=== PATIENT | female | born 1955 | race Caucasian/White ===

== ENCOUNTER → 2016-11-26 | Outpatient (CLI) | payer OTHER ==
--- NOTE | 2016-11-26 09:58 | US ---
EXAM DESCRIPTION: Gallbladder ultrasound. CLINICAL HISTORY: Abdominal pain. COMPARISON: March 12, 2015 TECHNIQUE: Transabdominal sonography was performed by an radiology ct technologist. FINDINGS: Liver: Echogenicity suggests fatty infiltration and/or chronic hepatocellular disease. No suspicious lesion or surface nodularity. Portal vein is patent with hepatopedal flow. Biliary: Several gallstones are present. There is no gallbladder wall thickening or sonographic Echols sign to suggest acute cholecystitis. There is no intrahepatic biliary duct dilation. Mid common bile duct measures 9 mm in diameter. Pancreas: No focal lesion. However, certain portions are obscured by overlying bowel gas and unable to be evaluated. IMPRESSION There is evidence of cholelithiasis and a prominent common bile duct. There is no evidence cholecystitis. The common bile duct is enlarged, but stable in diameter when compared February 2015. Echogenic liver compatible with fatty infiltration or hepatocellular disease. Electronically signed by: Latrell Nieves MD 11/26/2016 09:56
== END ==
LOC: US 08:59
PROVIDERS: ATTEND Nurse Practitioner Family
DX: R10.11 Right upper quadrant pain (principal)

== ENCOUNTER → 2017-01-11 | Outpatient (CLI) | payer OTHER | END | disposition home or self-care (01) | LOC: YCFC.O 08:00 | PROVIDERS: ATTEND Nurse Practitioner Family | DX: Z13.79 Encounter for other screening for genetic and chromosomal anomalies (principal); Z79.891 Long term (current) use of opiate analgesic ==

== ENCOUNTER → 2017-03-18 | Outpatient (CLI) | payer OTHER | END | disposition home or self-care (01) | LOC: YCFC.O 16:25 | PROVIDERS: ATTEND Nurse Practitioner Family | DX: N39.0 Urinary tract infection, site not specified (principal) ==

== ENCOUNTER → 2017-04-25 | Outpatient (CLI) | payer OTHER | END | disposition home or self-care (01) | LOC: YCFC.O 11:19 | PROVIDERS: ATTEND Anesthesiology Pain Medicine | DX: Z79.891 Long term (current) use of opiate analgesic (principal) ==

== ENCOUNTER 2017-05-02 08:00 | Day surgery (SDC) | payer OTHER ==
--- NOTE | 2017-04-28 12:02 | RAD ---
EXAM DESCRIPTION: Chest,1 View CLINICAL HISTORY: 62 years Female, Pre-op for abdominal surgery IMPRESSION: Heart size is at the upper limits of normal. No evidence of volume overload or pulmonary edema. Lungs are clear. No pleural effusion or pneumothorax. Electronically signed by: Latrell Nieves MD 04/28/2017 12:02 PM CDT
[~2017-05-02 08:00] MED LIST: BUPIVACAINE 0.25% W/EPI 50 ML VIAL INJ ONE; HEPARIN SODIUM (PORCINE) 10,000 UNITS/ML VIAL ONE; LACTATED RINGERS 1,000 ML ONE; MIDAZOLAM INJ 5 MG/5 ML VIAL ONE; ROCURONIUM BROMIDE 10 MG/ML VIAL ONE; SODIUM CHL 0.9% 100ML MINI-BAG 100 ML IVPB ONE; ceFAZolin SODIUM 1 GM VIAL ONE; fentaNYL CITRATE INJ 50 MCG/ML AMP ONE
[2017-05-02] MEDS ORDERED: ROCURONIUM BROMIDE 10 MG/ML VIAL ONE (09:37)
[2017-05-02] MEDS ORDERED: PROPOFOL 200 MG/20 ML VIAL IV ONE (12:00)
[2017-05-02] MEDS ORDERED: NEOSTIGMINE METHYLSULFATE 1 MG/ML ML IV ONE (12:00)
[2017-05-02] MEDS ORDERED: ATROPINE SULFATE 0.4 MG/ML 1ML VIAL IV ONE (12:00)
[2017-05-02] MEDS: MORPHINE SULFATE INJ 10 MG/ML VIAL ONE ×2 (12:55→13:00)
[2017-05-02] MEDS ORDERED: ONDANSETRON INJ 4 MG/2 ML VIAL ONE (13:13)
--- NOTE | 2017-05-02 13:22 | OP ---
DATE OF PROCEDURE: 05/02/17 PREOPERATIVE DIAGNOSIS: 1. Symptomatic cholelithiasis. 2. Fatty infiltration of the liver. POSTOPERATIVE DIAGNOSIS: 1. Symptomatic cholelithiasis. 2. Fatty infiltration of the liver. 3. Chronic cholecystitis. PROCEDURE: 1. Laparoscopic cholecystectomy with intraoperative cholangiography. 2. Wedge biopsy of the liver. 3. Hemoclip closing of duct of Luschka in the lateral aspect of the gallbladder bed. SURGEON: Richie Wu MD. BAKER HEAD: None. ANESTHESIA: Local infiltration of 0.25% Marcaine with epinephrine and general endotracheal anesthesia. INDICATION: The patient is a 62-year-old female with multiple medical problems including coronary artery disease status post myocardial infarction, diabetes mellitus, chronic constipation who has had episodes of right upper quadrant pain which were colicky in nature, quit severe, associated with nausea and radiation to the back and seemed to be associated with fatty meals. Her workup revealed what appeared to be small stones with no thickened wall or pericholecystic fluid and a normal duct. Also, there was apparent fatty infiltration of the liver or some other problem with the hepatic parenchyma. The patient was brought to the Surgical Suite today for cholecystectomy and liver biopsy after the risks, benefits and alternatives to the procedure were discussed and accepted. FINDINGS: Intraocular cholangiograms were compromised by the nonfunctioning of the C-arm, so they were taken with regular films. Due to the patient's size , they were quite difficult to read, however, we can definitely see the cystic cyst empty into the common hepatic duct even though it was quite light and hard to get fluid into the proximal biliary tree, but we were able to identify some of the branches. There was no leak, no filling defect or stricture identified. Also, after the gallbladder was removed, there was a small bile leak in the very lateral aspect of the posterior aspect of the gallbladder bed of the liver. The tiny os was identified and clipped with one clip and it was consistent with a duct of Luschka. No other significant pathology was identified other than that the gallbladder was covered with adhesions from the omentum and the duodenum. There were also adhesions from the omentum to the anterior abdominal wall laterally and below the gallbladder which required being taken down. DESCRIPTION OF PROCEDURE: After adequate general endotracheal anesthesia was obtained, the patient was prepped and draped in the usual sterile manner. Surgical time-out was taken. A vertical incision was made above the umbilicus, first with infiltration of anesthesia and then with a sharp knife. Dissection was carried down through the skin and subcutaneous tissue to the midline fascia. Traction sutures were placed on either side of the midline. A small incision was made in the fascia and the peritoneum was opened bluntly. Rolando trocar was introduced under direct vision into the abdominal cavity and fixed in place with the 20 mL balloon. CO2 was then insufflated until a pressure of 12 mmHg was reached and the abdomen was tympanitic in all four quadrants. When this was done, the laparoscope was introduced. The abdomen was inspected with the previously noted findings. The patient was then placed in reverse Trendelenburg position, turned to the left side. The midline upper abdominal port was placed under direct vision. The adhesions to the anterior abdominal were taken down using electrocautery and sharp dissection. When this was done, the other ports were placed. The gallbladder was elevated and the adhesions to the gallbladder were taken down again using sharp dissection and electrocautery and some blunt dissection. When the gallbladder was identified, the neck of the gallbladder was retracted anteriorly and laterally. The triangle of Calot was then explored with the cystic duct and cystic artery identified and isolated. The cystic duct was hemoclipped once proximally. The cystic artery was hemoclipped twice proximally and once distally. A small incision was made in the cystic duct. The cholangiogram catheter was introduced through a separate stab wound in the right upper quadrant, introduced into the cystic duct and clipped in place. Cholangiograms were then taken using fluoroscopy with the previously noted difficulties of poor visualization of the upper black. Free flow into the duodenum with no filling defects or strictures. When this was done, the cystic duct catheter was removed. The cystic duct was hemoclipped three times distally and divided between the hemoclips. The cystic artery was divided. The gallbladder was then dissected free from the gallbladder bed of the liver. A second arterial vessel was identified, clipped and divided and then as I noted laterally in the lateral aspect of the gallbladder bed of the liver, there was a bile leak which the os was approximately 1 mm and this was clipped with one clip which controlled the loss at that time. The wound was irrigated copiously with saline, both the subhepatic space and the subphrenic space on the right. The irrigant was noted to be slightly blood-tinged, so at this point a 15-German round ANNALISA drain was placed in the subhepatic space in the area of the clip on the duct of Luschka and in the sarah hepatis. It was sutured in placed on the lateral port site with a single 3-0 Nylon suture. When this was done, the upper abdominal ports were removed under direct vision and adequate hemostasis was noted. At this point, the CO2, the laparoscope and the infraumbilical port were removed. The infraumbilical port site fascia was approximated with a single [id number] suture of 0 Vicryl oriented [id number]. This was tightened and tied. The wounds were all irrigated copiously with saline. The supraumbilical subcutaneous tissue was reapproximated with 0 Vicryl sutures. Skin edges were approximated with 4-0 Vicryl subcuticular sutures, benzoin and Steri-Strips. Sterile pressure dressings were applied. The ANNALISA drain was placed to closed grenade drainage. The patient was awakened and taken to the Recovery Room in good and stable condition. Estimated blood loss was less than 50 mL. All sponge, needle and instrument counts were correct. #[id number] [facility]
[2017-05-02] MEDS: METOCLOPRAMIDE HCL INJ 10 MG/2 ML VIAL ONE ×2 (13:23→13:25)
[2017-05-02 14:00] VITALS: O2SAT 95
[2017-05-02 15:29] VITALS: BP 98/61; TEMP 97.4
--- NOTE | 2017-05-03 17:36 | RAD ---
EXAM DESCRIPTION: Cholangiogram,Operative CLINICAL HISTORY: 62 years Female, IOC COMPARISON: None. FINDINGS: Two radiographic images were obtained in the operative suite and demonstrate filling of the common bile duct and duodenum without evidence of obstruction. The second image demonstrates partial intrahepatic filling of the common hepatic and intrahepatic ducts as well as the filling of the cystic duct. Nasogastric tube is noted in place. IMPRESSION: Normal operative cholangiogram using plain film imaging in the operative suite Electronically signed by: Adonay Parkinson MD 05/03/2017 5:36 PM CDT
== END 2017-05-02 15:20 | disposition home or self-care (01) ==
LOC: AMB 08:00
PROVIDERS: ATTEND Surgery
DX: K80.10 Calculus of gallbladder with chronic cholecystitis without obstruction (principal); K76.0 Fatty (change of) liver, not elsewhere classified; I25.10 Atherosclerotic heart disease of native coronary artery without angina pectoris; E11.9 Type 2 diabetes mellitus without complications; G89.29 Other chronic pain; M54.9 Dorsalgia, unspecified; F17.210 Nicotine dependence, cigarettes, uncomplicated; I25.2 Old myocardial infarction; Z88.8 Allergy status to other drugs, medicaments and biological substances; Z79.02 Long term (current) use of antithrombotics/antiplatelets; Z79.4 Long term (current) use of insulin; Z79.899 Other long term (current) drug therapy
CPT/HCPCS: 00790; 36415; 36416; 47100; 47563; 71010; 74300; 80053; 81001; 82948; 85025; 93005; J0690; J1644; J2270; J2405; J2710; J2765; J3010; J3490; J7050; J7120

== ENCOUNTER → 2017-05-04 | Outpatient (CLI) | payer OTHER | END | disposition home or self-care (01) | LOC: LAB 09:29 | PROVIDERS: ATTEND Surgery | DX: K80.10 Calculus of gallbladder with chronic cholecystitis without obstruction (principal) ==

== ENCOUNTER → 2017-08-09 | Outpatient (CLI) | payer OTHER | END | disposition home or self-care (01) | LOC: YCFC.O 14:43 | PROVIDERS: ATTEND Anesthesiology Pain Medicine | DX: Z79.891 Long term (current) use of opiate analgesic (principal) ==

== ENCOUNTER → 2017-10-11 | Outpatient (CLI) | payer OTHER ==
--- NOTE | 2017-10-13 02:18 | RAD ---
Examination: XR ANKLE 3 OR MORE VIEWS dated 10/11/2017 8:56 AM [employer] History: RIGHT ANKLE PAIN Comparison: None Technique: Three views of the right ankle FINDINGS AND IMPRESSION: There is an oblique fracture extending through the distal fibular shaft with mild widening of the lateral ankle mortise suggestive of ligamentous injury. Well-corticated fragment adjacent to the medial malleolus likely sequela of prior avulsion injury. Electronically signed by: Shayne Bustos MD 10/13/2017 2:17 AM [employer] [employer]
== END | disposition home or self-care (01) ==
LOC: RAD 08:56
PROVIDERS: ATTEND Orthopaedic Surgery
DX: M25.571 Pain in right ankle and joints of right foot (principal)

== ENCOUNTER → 2017-10-24 | Outpatient (CLI) | payer OTHER ==
--- NOTE | 2017-10-24 13:58 | RAD ---
EXAM DESCRIPTION: Right ankle, 3 views CLINICAL HISTORY: Fracture with pain and deformity FINDINGS/ IMPRESSION: Comparison 10/11/2017 Spiral oblique fracture of the distal fibula extending from posterior lateral metaphysis to the anterior inferior metaphysis at the level of the ankle joint. No osseous union or callus. Similar degree of displacement/separation between the 2 fragments, about 2-3 mm Widening of the ankle mortise medially. Faint calcific density inferior to the medial malleolus likely related to remote avulsion fracture. These were present on the previous study. No acute tibial fracture Small anterior tibiotalar marginal osteophytes Large well-corticated plantar calcaneal spur and calcaneal enthesophyte at the Achilles tendon attachment Soft tissue swelling Electronically signed by: Adonay Galvin MD 10/24/2017 1:57 PM [facility]
--- NOTE | 2017-10-24 14:24 | RAD ---
EXAM DESCRIPTION: Ankle,Left 3 Views CLINICAL HISTORY: PAIN IN LEFT ANKLE AND JOINTS OF LEFT FOOT COMPARISON: None. IMPRESSION: 3 views of the left ankle shows a spiral fracture of the distal fibula extending from the level of the ankle mortise to 3 cm proximally. There is minimal up to 2 mm separation of the medial aspect of the osseous fragments. Ankle mortise appears intact. No definite medial malleolus fracture seen. Large plantar and Achilles enthesophytes of the calcaneus are seen. Mild joint space narrowing and osteophytes of the midfoot tarsal bones are seen consistent with osteoarthritic changes. Electronically signed by: Dane Wong MD 10/24/2017 2:22 PM [facility]
== END | disposition home or self-care (01) ==
LOC: RAD 08:13
PROVIDERS: ATTEND Orthopaedic Surgery
DX: S82.821D Torus fracture of lower end of right fibula, subsequent encounter for fracture with routine healing (principal); M25.572 Pain in left ankle and joints of left foot; X58.XXXA Exposure to other specified factors, initial encounter

== ENCOUNTER → 2017-11-09 | Outpatient (CLI) | payer OTHER ==
--- NOTE | 2017-11-10 07:04 | RAD ---
EXAM DESCRIPTION: Ankle,Right 3 Views CLINICAL HISTORY: 62 years Female, CLOSED FRACTURE OF DISTAL FIBULA COMPARISON: October 24, 2017 FINDINGS: Again seen is an obliquely oriented minimally displaced distal right fibular fracture without significant callus formation identified on today's exam. No new fracture or malalignment. The tibiotalar joint space and talar dome are well-maintained. Again seen is prominent calcaneal spurring at the insertion sites of the plantar fascia and Achilles tendon. IMPRESSION: Minimally displaced distal right fibular fracture which remains largely nonunited, not significantly changed from October 24, 2017. No new abnormality. Electronically signed by: Nikos Lux MD 11/10/2017 7:03 AM [facility]
--- NOTE | 2017-11-10 07:07 | RAD ---
EXAM DESCRIPTION: Ankle,Left 3 Views CLINICAL HISTORY: 62 years Female, CLOSED FRACTURE OF DISTAL FIBULA COMPARISON: October 24, 2017 FINDINGS: 3 views of the left ankle again show a slightly displaced obliquely oriented distal left fibular fracture with minimal callus formation along the most superior aspect of the fracture plane. The fracture remains largely nonunited. No new fracture or malalignment. Again seen is prominent calcaneal spurring at the insertion sites of the plantar fascia and Achilles tendon. Mild degenerative calcifications are noted along the dorsal aspect of the midfoot. IMPRESSION: Minimally displaced, largely nonunited distal left fibular fracture, unchanged from October 24, 2017. No new abnormality. Electronically signed by: Nikos Lux MD 11/10/2017 7:06 AM [facility]
== END | disposition home or self-care (01) ==
LOC: RAD 07:56
PROVIDERS: ATTEND Orthopaedic Surgery
DX: S89.391D Other physeal fracture of lower end of right fibula, subsequent encounter for fracture with routine healing (principal)

== ENCOUNTER → 2017-11-17 | Outpatient (CLI) | payer OTHER ==
--- NOTE | 2017-11-17 09:44 | RAD ---
EXAM DESCRIPTION: Ankle,Right 3 Views CLINICAL HISTORY: 62 years, Female, CLOSED FX OF DISTAL FIBULA COMPARISON: November 09 FINDINGS: Study view through a cast slightly obscures bony detail. Fracture lower fibula with minimal lateral subluxation stable alignment.. IMPRESSION: Slight interval healing lower fibula fracture with stable alignment compared to November 09 as viewed through a cast Electronically signed by: Armani Inman MD 11/17/2017 9:43 AM [facility]
--- NOTE | 2017-11-17 10:00 | RAD ---
EXAM DESCRIPTION: Ankle,Left 3 Views CLINICAL HISTORY: 62 years, Female, ANKLE PAIN COMPARISON: None. TECHNIQUE: AP/lateral/oblique of the ankle left ankle FINDINGS: Out of cast images of the left ankle demonstrate an oblique fracture of the distal fibular shaft with minimal bridging callus formation but considerable lucency remaining. Ankle mortise is well maintained. IMPRESSION: 1. Partially healed distal fibular fracture. Electronically signed by: Adonay Parkinson MD 11/17/2017 9:59 AM [facility]
--- NOTE | 2017-11-17 10:42 | RAD ---
EXAM DESCRIPTION: XR ABDOMEN 1 VIEW (KUB) CLINICAL HISTORY: ABD DISTENTION COMPARISON: None Available. TECHNIQUE: KUB FINDINGS: There is an unremarkable bowel gas pattern. Surgical clips from right upper quadrant prior cholecystectomy is noted No obstruction or ileus is evident. No soft tissue masses or unusual calcifications are noted. Age appropriate bony degenerative changes are present. IMPRESSION: Normal examination Electronically signed by: Adonay Parkinson MD 11/17/2017 10:41 AM [employer]
== END | disposition home or self-care (01) ==
LOC: RAD 08:34
PROVIDERS: ATTEND Orthopaedic Surgery
DX: S89.391D Other physeal fracture of lower end of right fibula, subsequent encounter for fracture with routine healing (principal); M25.572 Pain in left ankle and joints of left foot; R14.0 Abdominal distension (gaseous)

== ENCOUNTER → 2017-12-01 | Outpatient (CLI) | payer OTHER ==
--- NOTE | 2017-12-02 09:28 | RAD ---
EXAM DESCRIPTION: Ankle,Right 3 Views CLINICAL HISTORY: 62 years, Female, CLOSED FRACTURE OF DISTAL FIBULA COMPARISON: November 17, 2017 TECHNIQUE: AP/lateral/oblique of the Right ankle FINDINGS: Patient is in a cast. Oblique nondisplaced nonangulated healing fracture distal fibula. Minor callus formation observed but healing is very early. Mortise joint shows normal relationship. IMPRESSION: 1. Well aligned fracture distal fibula Electronically signed by: Jayro Hutchins MD 12/02/2017 9:27 AM [facility]
--- NOTE | 2017-12-02 09:29 | RAD ---
EXAM DESCRIPTION: Ankle,Left 3 Views CLINICAL HISTORY: 62 years, Female, PAIN IN LEFT ANKLE COMPARISON: November 17, 2017 TECHNIQUE: AP/lateral/oblique of the left ankle FINDINGS: Oblique nondisplaced fracture distal fibula with early callus formation. Mortise joint shows normal relationship. IMPRESSION: 1. Early healing left fibular fracture Electronically signed by: Jayro Hutchins MD 12/02/2017 9:27 AM [facility]
== END | disposition home or self-care (01) ==
LOC: RAD 08:21
PROVIDERS: ATTEND Orthopaedic Surgery
DX: S89.391D Other physeal fracture of lower end of right fibula, subsequent encounter for fracture with routine healing (principal); M25.572 Pain in left ankle and joints of left foot

== ENCOUNTER → 2017-12-26 | Outpatient (CLI) | payer OTHER ==
--- NOTE | 2017-12-26 16:43 | RAD ---
EXAM DESCRIPTION: Ankle,Right 3 Views CLINICAL HISTORY: 62 years, Female, ANKLE PAIN COMPARISON: None. TECHNIQUE: AP/lateral/oblique of the ankle FINDINGS: Three views of the right ankle demonstrate an oblique fracture of the distal fibular shaft that tracts from superiolaterally to the level of the talar dome with very slight widening of the fracture line. Very minimal widening of the ankle mortise medially is suggested. Calcaneal spurring at the plantar arch origin and Achilles tendon insertion is noted. No abnormality of the medial or posterior malleolus noted. IMPRESSION: 1. Oblique fracture of the distal fibular shaft above the ankle mortise with suggestion of minimal widening of the mortise medially. Electronically signed by: Adonay Parkinson MD 12/26/2017 4:42 PM [facility]
--- NOTE | 2017-12-26 17:28 | RAD ---
EXAM DESCRIPTION: Ankle,Left 3 Views CLINICAL HISTORY: 62 years, Female, CLOSED FX OF DISTAL FIBULA COMPARISON: December 01, 2017 TECHNIQUE: AP/lateral/oblique of the ankle FINDINGS: Three views of the left ankle demonstrate a partially healed oblique fracture of the distal fibula above the ankle mortise, similar to that seen on the right but without evidence of early callus formation bridging the fracture site. No significant widening of the ankle mortise is noted. Definite maturation of the callus is evident without change in alignment comparison to prior study December 01. IMPRESSION: 1. Partially healed oblique fracture of the distal fibula with slight maturation of callus formation. Electronically signed by: Adonay Parkinson MD 12/26/2017 5:27 PM [facility]
== END ==
LOC: RAD 08:59
PROVIDERS: ATTEND Orthopaedic Surgery
DX: S89.391D Other physeal fracture of lower end of right fibula, subsequent encounter for fracture with routine healing (principal); S82.401A Unspecified fracture of shaft of right fibula, initial encounter for closed fracture

== ENCOUNTER → 2018-01-26 | Outpatient (CLI) | payer OTHER ==
--- NOTE | 2018-01-26 12:50 | RAD ---
EXAM DESCRIPTION: Ankle,Right 3 Views CLINICAL HISTORY: 62 years, Female, CLOSED FX OF DISTAL FIBULA COMPARISON: Previous study December 26, 2017 TECHNIQUE: AP/lateral/oblique of the right ankle FINDINGS: Intact medial and lateral malleolus. There is mild soft tissue swelling medially and laterally. Oblique fracture through the distal fibula is seen extending into the lateral aspect of the ankle joint. Compared to previous study, no change in alignment is seen. Fracture line is somewhat obscured by bridging callus. There is periosteal new bone formation medially. Irregularities at the medial malleolus suggest old trauma. Small cystic lesion in the medial talar dome suggests subchondral degenerative cyst formation. No cortical break to suggest traumatic osteochondral lesion. Lateral view shows no evidence of fracture of the body of the talus or calcaneus. Exuberant plantar and dorsal calcaneal spurring is present. Mild degenerative spurring at the anterior ankle joint. Degenerative spurring is seen at the dorsal navicular. IMPRESSION: Healing fracture of the distal right fibula. Electronically signed by: Michael Patel MD 01/26/2018 12:49 PM [facility]
--- NOTE | 2018-01-26 12:54 | RAD ---
EXAM DESCRIPTION: Ankle,Left 3 Views CLINICAL HISTORY: 62 years, Female, PAIN IN LEFT ANKLE AND JOINTS OF LEFT FOOT COMPARISON: Left ankle x-rays December 26, 2017 TECHNIQUE: AP/lateral/oblique of the left ankle FINDINGS: Oblique fracture through the distal left fibula is seen extending into the lateral ankle joint. Periosteal new bone formation and bridging callus is evident on the present exam consistent with healing fracture. No change in alignment since previous study. Minimal spurring at the medial malleolus. Talar dome appears intact. There is minimal soft tissue swelling near the malleoli. Lateral view shows degenerative spurring at the anterior ankle joint and at the naviculocuneiform joint. Lateral view shows no evidence of fracture of the body of the talus or calcaneus. Prominent dorsal and plantar calcaneal spurring is seen. IMPRESSION: Healing fracture of the distal left fibula. Electronically signed by: Michael Patel MD 01/26/2018 12:53 PM [facility]
== END ==
LOC: RAD 08:51
PROVIDERS: ATTEND Orthopaedic Surgery
DX: S89.391D Other physeal fracture of lower end of right fibula, subsequent encounter for fracture with routine healing (principal); M25.572 Pain in left ankle and joints of left foot

== ENCOUNTER → 2018-03-09 | Outpatient (CLI) | payer OTHER ==
--- NOTE | 2018-03-10 09:10 | RAD ---
EXAM DESCRIPTION: Ankle,Left 3 Views CLINICAL HISTORY: 62 years Female, PAIN IN LEFT ANKLE AND JOINTS OF LEFT FOOT COMPARISON: January 26, 2018 FINDINGS: Previous of the left ankle show a partially united, obliquely oriented and nondisplaced fracture involving the distal third of the left fibular diaphysis, not significantly changed from January 26, 2018. No acute fracture or malalignment is seen. The tibiotalar joint space and talar dome are well-maintained. Again noted is prominent calcaneal spurring at the insertion sites of the Achilles tendon and plantar fascia. IMPRESSION: Partially united distal left fibular fracture, not significantly changed from January 26, 2018. Electronically signed by: Nikos Lux MD 03/10/2018 9:09 AM CDT
--- NOTE | 2018-03-10 09:13 | RAD ---
EXAM DESCRIPTION: Ankle,Right 3 Views CLINICAL HISTORY: 62 years Female, PHYSEAL FX OF LOWER END OF RIGHT FIBULA COMPARISON: January 26, 2018 FINDINGS: Again seen is a partially united, nondisplaced fracture involving the distal third of the right fibular diaphysis, not significantly changed from January 26, 2018. No acute fracture or malalignment is seen. Calcification adjacent to the medial malleolus may be related to remote trauma or degenerative change. The tibiotalar joint space and talar dome are well-maintained. Again noted is prominent calcaneal spurring at the insertion sites of the plantar fascia and Achilles tendon. IMPRESSION: Nondisplaced partially united distal right fibular fracture, not significantly changed from January 26, 2018. No new abnormality or other significant interval change. Electronically signed by: Nikos Lux MD 03/10/2018 9:11 AM CDT
== END ==
LOC: RAD 08:00
PROVIDERS: ATTEND Orthopaedic Surgery
DX: S89.391D Other physeal fracture of lower end of right fibula, subsequent encounter for fracture with routine healing (principal); S89.392D Other physeal fracture of lower end of left fibula, subsequent encounter for fracture with routine healing

== ENCOUNTER → 2018-05-04 | Outpatient (CLI) | payer OTHER ==
--- NOTE | 2018-05-04 13:15 | RAD ---
EXAM DESCRIPTION: Ankle,Right 3 Views CLINICAL HISTORY: 63 years, Female, PHYSEAL FRACTURE OF LOWER END OF RIGHT FIBULA COMPARISON: None. TECHNIQUE: AP/lateral/oblique of the right ankle FINDINGS: Healing fracture of the distal fibula is noted with bridging callus. Anatomic alignment is stable compared to the previous study. Talar dome appears intact. Prominent plantar and dorsal calcaneal enthesophytes are present. Degenerative spurring at the dorsal midfoot. Irregularity of the base of the fifth metatarsal appears old. IMPRESSION: Healing fracture of the distal right fibula. Electronically signed by: Michael Patel MD 05/04/2018 1:13 PM CDT
--- NOTE | 2018-05-04 13:16 | RAD ---
EXAM DESCRIPTION: Ankle,Left 3 Views CLINICAL HISTORY: 63 years, Female, PHYSEAL FRACTURE OF LOWER END OF LEFT FIBULA COMPARISON: None. TECHNIQUE: AP/lateral/oblique of the left ankle FINDINGS: Healing oblique fracture of the distal left fibula is seen with near-anatomic alignment. The alignment is unchanged compared to previous study. Healing appears to have progressed with decreasing definition at the fracture line. Talar dome appears intact. Prominent dorsal and plantar calcaneal enthesophytes are present with mild dorsal midfoot spurring. IMPRESSION: Healing fracture of the distal left fibula. Calcaneal spurring. Electronically signed by: Michael Patel MD 05/04/2018 1:15 PM CDT
== END ==
LOC: RAD 09:30
PROVIDERS: ATTEND Orthopaedic Surgery
DX: S89.391D Other physeal fracture of lower end of right fibula, subsequent encounter for fracture with routine healing (principal); S89.392D Other physeal fracture of lower end of left fibula, subsequent encounter for fracture with routine healing

== ENCOUNTER → 2018-06-15 | Outpatient (CLI) | payer OTHER ==
--- NOTE | 2018-06-15 11:21 | RAD ---
EXAM DESCRIPTION: Ankle,Right 3 Views CLINICAL HISTORY: 63 years Female, FX OF LOWER RT FIBULA COMPARISON: 06/15/2018 TECHNIQUE: AP, oblique and lateral radiographs. FINDINGS: The visualized bones appear well mineralized. Healing fracture of the distal fibula. Mild spurring along the medial malleolus. IMPRESSION: Healing fracture of the distal fibula. Electronically signed by: Mike Kate MD 06/15/2018 11:20 AM CDT
--- NOTE | 2018-06-15 11:22 | RAD ---
EXAM DESCRIPTION: Ankle,Left 3 Views CLINICAL HISTORY: 63 years Female, FX OF LOWER LEFT FIBULA COMPARISON: 05/04/2018 TECHNIQUE: AP, oblique and lateral radiographs. FINDINGS: The visualized bones appear well mineralized. Near complete healing of the distal fibular fracture. IMPRESSION: Near complete healing of the distal fibular fracture. Electronically signed by: Mike Kate MD 06/15/2018 11:21 AM CDT
== END ==
LOC: RAD 09:38
PROVIDERS: ATTEND Orthopaedic Surgery
DX: S89.391D Other physeal fracture of lower end of right fibula, subsequent encounter for fracture with routine healing (principal); S89.392D Other physeal fracture of lower end of left fibula, subsequent encounter for fracture with routine healing

== ENCOUNTER → 2019-01-18 | Outpatient (CLI) | payer OTHER ==
--- NOTE | 2019-01-18 13:08 | RAD ---
EXAM DESCRIPTION: Hand,Left 3 Views CLINICAL HISTORY: PAIN IN RIGHT HAND AND LEFT HAND COMPARISON: None Available. TECHNIQUE: AP, LATERAL, AND OBLIQUE radiograph of the left hand were obtained. FINDINGS: The visualized bones appear well mineralized. No acute fracture or dislocation. The soft tissues appear grossly unremarkable. Mild degenerative changes are identified in the first carpometacarpal and interphalangeal joints. IMPRESSION: Mild degenerative changes are identified in the first carpometacarpal and interphalangeal joints. Electronically signed by: Naila Gibson MD 01/18/2019 1:[address] [facility]
--- NOTE | 2019-01-18 13:50 | RAD ---
EXAM DESCRIPTION: Hand,Right 3 Views CLINICAL HISTORY: PAIN IN RIGHT HAND AND LEFT HAND COMPARISON: None Available. TECHNIQUE: AP, LATERAL, AND OBLIQUE FINDINGS: Three-view right hand shows no fracture or dislocation. There is no bone lesion. Osteoarthritic degenerative changes are present mainly involving DIP joints with early joint space narrowing and marginal osteophyte formation. This is most prominent at the second DIP joint. Shortening of the fifth metacarpal is very prominent and may be posttraumatic. The left fifth metacarpal is not short. IMPRESSION: 1. Arthritic changes of the DIP joints Electronically signed by: Jayro Hutchins MD 01/18/2019 1:47 PM [facility]
== END ==
LOC: RAD 08:36
PROVIDERS: ATTEND Orthopaedic Surgery
DX: Z01.818 Encounter for other preprocedural examination (principal); M79.641 Pain in right hand; M79.642 Pain in left hand

== ENCOUNTER 2019-02-16 05:44 | Day surgery (SDC) | payer OTHER ==
--- NOTE | 2019-02-15 12:38 | RAD ---
EXAM DESCRIPTION: Chest,2 Views CLINICAL HISTORY: PREOP COMPARISON: Previous study April 28, 2017 TECHNIQUE: PA/lateral FINDINGS: There is no acute appearing cardiac or pulmonary abnormality. Heart size is prominent with normal pulmonary vascularity. No pleural effusion or pneumothorax. Lungs are clear with no consolidating infiltrate. Lateral view shows intact sternum and T-spine. IMPRESSION: No acute process is identified in the chest. Electronically signed by: Michael Patel MD 02/15/2019 12:35 PM CDT
--- NOTE | 2019-02-15 13:15 | HP ---
CHIEF COMPLAINT: Left second and third triggering. HISTORY OF PRESENT ILLNESS: Isabel is a 63-year-old female with a history of pain in the digits in the palmar aspect. In addition to that, she has been having clicking. She has had some locking and at this point has failed to get relief with any conservative measures. Because of that, she has requested operative intervention. After discussing the risks, benefits and alternatives to that, she has given informed consent. PAST SURGICAL HISTORY: 1. Bilateral lower extremity stent placement. MEDICATIONS: 1. Lisinopril. 2. Venlafaxine. 3. Esomeprazole. 4. Farxiga. 5. Clopidogrel. 6. Metformin. 7. Ropinirole. 8. Lyrica. 9. Toviaz. 10. Trazodone. 11. Humalog. 12. Tresiba. 13. Oxycodone. ALLERGIES: FLEXERIL. CODE STATUS: Full code. IMMUNIZATIONS: Up to date. FAMILY HISTORY: None pertinent to today's complaint. SOCIAL HISTORY: The patient does not drink or use any illicit drugs. She does smoke. REVIEW OF SYSTEMS: Negative except as indicated in the History of Present Illness. PHYSICAL EXAMINATION: VITAL SIGNS: Blood pressure 130/60. Pulse 68. Height 5'5". Weight 235 pounds. MENTAL STATUS: The patient is awake, alert, and is able to give a good history and participate in the physical. The patient is oriented to person, place and time. SKIN: Normal tone and turgor. MUSCULOSKELETAL: She has pain over the second and third digits at the A1 pat. She has some pain at the third and fourth digits. That is on the right side. She has palpable clicking at the left second and third digits and the right third and fourth digits. Both hands are warm and well perfused. Although she does have full range of motion, she does have some locking of the second digit. ASSESSMENT: 1. Trigger finger at the second and third digits. PLAN: The plan at this point is for trigger finger release. We have discussed the risks, benefits, and alternatives to that and the patient has given informed consent. #[id number] [facility]
[2019-02-16] MEDS ORDERED: SODIUM CHL 0.9% 100ML MINI-BAG 100 ML IVPB ONE (05:48)
[2019-02-16] MEDS ORDERED: LACTATED RINGERS 0 ML ONE (05:48)
[2019-02-16] MEDS ORDERED: ceFAZolin SODIUM 1 GM VIAL ONE (05:48)
[2019-02-16] MEDS ORDERED: LACTATED RINGERS 1,000 ML ONE (05:57)
[2019-02-16] MEDS ORDERED: LIDOCAINE 1% 10 ML VIAL INJ ONE (06:37)
[2019-02-16] MEDS ORDERED: BUPIVACAINE 0.25% INJ 30 ML VIAL INJ ONE (06:37)
[2019-02-16] MEDS ORDERED: PROPOFOL 200 MG/20 ML VIAL IV ONE (07:00)
[2019-02-16] MEDS: VANCOMYCIN HCL INJ 1,000 MG VIAL IVPB ONE ×2 (07:24→07:37)
[2019-02-16] MEDS: ceFAZolin SODIUM 1 GM VIAL ONE ×2 (07:24→07:37)
[2019-02-16 08:36] VITALS: BP 111/47
[2019-02-16 09:01] VITALS: TEMP 97.9; O2SAT 96
--- NOTE | 2019-02-16 09:07 | OP ---
DATE OF PROCEDURE: 02/16/19 PREOPERATIVE DIAGNOSIS: 1. Trigger finger of the second and third digits. POSTOPERATIVE DIAGNOSIS: 1. Trigger finger of the second and third digits. PROCEDURE: 1. Trigger finger release of the left second and third digits. SURGEON: Moo Raya MD. PRINTED CIRCUIT BOARDS PINNER: Jabari Funk CST, SA-C. ANESTHESIA: Local with sedation. COMPLICATIONS: None. FINDINGS: Triggering at the A1 pat of the second and third digits. INDICATION: Ms. Hensley has a history of triggering at the second and third digits of the left hand. Unfortunately, she has gotten to the point that it causes an issue on a daily basis. Because of the ongoing problems she is having, she has requested operative intervention. After discussing the risks, benefits and alternatives to operative therapy, the patient has given informed consent for trigger finger release. PROCEDURE: The patient was brought to the Operating Room and placed in the supine position. Sedation was administered and local anesthetic was injected into the operative area. Following injection, the arm was sterilely prepped and draped. A transverse incision was made directly overlying the A1 pat of the triggering digit and blunt dissection was carried down to the pat while protecting the digital nerves. After identification of the pat, the pat was transected and a [place] elevator was passed both proximally and distally to ensure complete release. The finger was flexed and extended and there was no evidence of locking or clicking. Attention was then focused on the third digit where a transverse incision was made directly overlying the A1 pat. Blunt dissection was carried down to the A1 pat which was sharply incised. [place] elevator was passed from proximal to distal to ensure complete release. Once complete release had been performed, all wounds were thoroughly irrigated and closed with Nylon suture. A sterile dressings were placed and the patient was awoken from anesthesia. POSTOPERATIVE PLAN: The patient has been encouraged to do range of motion of the digits and will followup with us in two days. #[id number] [facility]
== END 2019-02-16 08:50 | disposition home or self-care (01) ==
LOC: AMB 05:44
PROVIDERS: ATTEND Orthopaedic Surgery
DX: M65.322 Trigger finger, left index finger (principal); M65.332 Trigger finger, left middle finger; I10 Essential (primary) hypertension; I25.10 Atherosclerotic heart disease of native coronary artery without angina pectoris; E66.9 Obesity, unspecified; G47.33 Obstructive sleep apnea (adult) (pediatric); J44.9 Chronic obstructive pulmonary disease, unspecified; Z88.8 Allergy status to other drugs, medicaments and biological substances; Z79.4 Long term (current) use of insulin; Z79.899 Other long term (current) drug therapy
CPT/HCPCS: 01810; 26055; 71046; 80048; 80307; 82948; 85025; 93005; J0690; J3370; J3490; J7050; J7120

== ENCOUNTER 2019-08-24 09:15 | Emergency (ER) | payer OTHER ==
[2019-08-24] MEDS ORDERED: SULFA/TRIMETH 800/160 (DS) TAB 1 EA TAB PO ONE (09:34)
--- NOTE | 2019-08-24 09:37 | ED.PDOC ---
History of Present Illness - General Chief Complaint: Skin/Abrasion/Tear Stated Complaint: Picked a scab that wont quit bleeding Time Seen by Provider: 08/24/19 09:17 Source: patient Exam Limitations: no limitations - History of Present Illness Initial Comments: the patient is 64-year-old female presenting to emergency room secondary to a very tiny laceration to the left inner ankle that she sustained last night 8 PM. The reason she presents here today is that it has continued to lose. She does take Plavix as a blood thinner. She has changed multiple dressings on it. Estimated blood loss is probably 20 cc. Size of laceration is less than 1 mm. No evidence of infection at this time. Timing/Duration: other - 14 hours Severity: mild Worsening Factors: nothing Associated Symptoms: denies symptoms Allergies/Adverse Reactions: Allergies Cyclobenzaprine [From Flexeril] Adverse Reaction (Verified 02/15/19 10:40) Other INCREASE IN RESTLESNESS Home Medications: Ambulatory Orders Clopidogrel Bisulfate [Plavix] 75 mg PO DAILY 04/28/17 Dapagliflozin Propanediol [Farxiga] 10 mg PO DAILY 04/28/17 Esomeprazole Magnesium [Nexium] 40 mg PO DAILY 04/28/17 Fesoterodine Fumarate [Toviaz] 8 mg PO BEDTIME 04/28/17 Insulin Degludec [Tresiba Flextouch] 200 unit SC BID 04/28/17 Insulin Lispro [Humalog] 40 unit SC BID 04/28/17 Lisinopril 10 mg PO DAILY 04/28/17 Metformin HCl [Metformin Hydrochloride] 1,000 mg PO BID 04/28/17 Pregabalin [Lyrica] 100 mg PO TID 04/28/17 Ropinirole Hydrochloride [Ropinirole HCl] 3 mg PO BEDTIME 04/28/17 Trazodone HCl 300 mg PO BEDTIME 04/28/17 Oxycodone W/ Acetaminophen [Oxycodone/Acetaminophen 10-325 mg] 10 mg PO QID 02/15/19 Ropinirole Hydrochloride [Ropinirole HCl] 0.5 mg PO DAILY 02/15/19 Venlafaxine HCl 75 mg PO DAILY 02/15/19 Review of Systems - Review of Systems Constitutional: States: no symptoms reported EENTM: States: no symptoms reported Respiratory: States: no symptoms reported Cardiology: States: no symptoms reported Gastrointestinal/Abdominal: States: no symptoms reported Genitourinary: States: no symptoms reported Musculoskeletal: States: no symptoms reported Skin: States: see HPI Neurological: States: no symptoms reported Endocrine: States: no symptoms reported All other Systems: No Change from Baseline Past Medical History (General) - Patient Medical History Hx Congestive Heart Failure: No Hx Diabetes: Yes - [id number] Hx MRSA: No Physical Exam - Physical Exam General Appearance: Alert, Comfortable, No apparent distress Eye Exam: bilateral normal Ears, Nose, Throat: hearing grossly normal Respiratory: no respiratory distress, no accessory muscle use Cardiovascular/Chest: normal peripheral pulses, no edema Peripheral Pulses: dorsalis pedis,right: 2+, dorsalis pedis,left: 2+, posterior tibialis,right: 2+, posterior tibialis,left: 2+ Gastrointestinal/Abdominal: other - obese Rectal Exam: deferred Extremity: normal range of motion, non-tender, no pedal edema, no calf tenderne ss, normal capillary refill Neurologic: scraper 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 The wound was cleaned with hydrogen peroxide and Dermabond was placed over for hemostasis. The patient was given 1 dose of Bactrim for infection prophylaxis. I do not expect that this will require any other treatment. ER warnings were given. Keep routine follow-up with primary care doctor. Departure - Departure Clinical Impression: Laceration of skin Disposition: Discharge to Home or Self Care Condition: Fair Departure Forms: ED Discharge - Pt. Copy, Patient Portal Self Enrollment Diet: diabetic diet Activity: increase activity as tolerated Referrals: Deisy Brock NP [Primary Care Provider] - 1-2 Weeks Home Medications: Ambulatory Orders Clopidogrel Bisulfate [Plavix] 75 mg PO DAILY 04/28/17 Dapagliflozin Propanediol [Farxiga] 10 mg PO DAILY 04/28/17 Esomeprazole Magnesium [Nexium] 40 mg PO DAILY 04/28/17 Fesoterodine Fumarate [Toviaz] 8 mg PO BEDTIME 04/28/17 Insulin Degludec [Tresiba Flextouch] 200 unit SC BID 04/28/17 Insulin Lispro [Humalog] 40 unit SC BID 04/28/17 Lisinopril 10 mg PO DAILY 04/28/17 Metformin HCl [Metformin Hydrochloride] 1,000 mg PO BID 04/28/17 Pregabalin [Lyrica] 100 mg PO TID 04/28/17 Ropinirole Hydrochloride [Ropinirole HCl] 3 mg PO BEDTIME 04/28/17 Trazodone HCl 300 mg PO BEDTIME 04/28/17 Oxycodone W/ Acetaminophen [Oxycodone/Acetaminophen 10-325 mg] 10 mg PO QID 02/15/19 Ropinirole Hydrochloride [Ropinirole HCl] 0.5 mg PO DAILY 02/15/19 Venlafaxine HCl 75 mg PO DAILY 02/15/19 Additional Instructions: the patient is a 64-year-old female presenting secondary to a very small laceration to the left inner ankle that has continued bleeding over the last 14 hours. The wound was cleaned with hydrogen peroxide and Dermabond was placed over for hemostasis. The patient was given 1 dose of Bactrim for infection prophylaxis. I do not expect that this will require any other treatment. ER warnings were given. Keep routine follow-up with primary care doctor.
[2019-08-24 09:41] VITALS: O2SAT 98
[2019-08-24 09:51] VITALS: BP 92/62; TEMP 95.9
== END 2019-08-24 09:50 | disposition home or self-care (01) ==
LOC: ER 09:15
DX: S91.012A Laceration without foreign body, left ankle, initial encounter (principal); E11.9 Type 2 diabetes mellitus without complications; Z79.4 Long term (current) use of insulin; Z79.899 Other long term (current) drug therapy; Z88.8 Allergy status to other drugs, medicaments and biological substances; Z79.02 Long term (current) use of antithrombotics/antiplatelets; X58.XXXA Exposure to other specified factors, initial encounter; Y92.9 Unspecified place or not applicable

== ENCOUNTER 2020-12-29 18:55 | Emergency (ER) | payer OTHER ==
[2020-12-29] MEDS ORDERED: HEPARIN SODIUM (PORCINE) 5,000 U/ML VIAL IV ONE (20:29)
[2020-12-29] MEDS ORDERED: HEPARIN PREMIX 25,000 UNITS in PREMIX BAG 1 BAG IVS SCH (20:30)
[2020-12-29] MEDS ORDERED: MORPHINE SULFATE INJ 10 MG/ML VIAL IV ONE (21:16)
[2020-12-29] MEDS ORDERED: MORPHINE SULFATE INJ 10 MG/ML VIAL ONE (21:18)
--- NOTE | 2020-12-29 21:47 | ED.PDOC ---
History of Present Illness - General Chief Complaint: Post Op Problems Stated Complaint: post insertion of balloon on right leg, pain Time Seen by Provider: 12/29/20 20:22 Source: patient, RN notes reviewed, Vital Signs reviewed, RN/ - Dr Emerson-on slot attendant Exam Limitations: other - Pt is medically illiterate - History of Present Illness Initial Comments: Patient is a 65-year-old white female who underwent a "balloon procedure" 5 days ago. Patient has noticed worsening swelling and pain over the last 24 hours. The pain is in her left leg. It is constant. It is worsening. It radiates up and down the leg. It is throbbing in nature. The pain is severe. Timing/Duration: getting worse Severity: severe Improving Factors: nothing Worsening Factors: movement Associated Symptoms: denies symptoms Allergies/Adverse Reactions: Allergies Cyclobenzaprine [From Flexeril] Adverse Reaction (Verified 12/29/20 19:16) Other INCREASE IN RESTLESNESS Home Medications: Ambulatory Orders Clopidogrel Bisulfate [Plavix] 75 mg PO DAILY 04/28/17 Dapagliflozin Propanediol [Farxiga] 10 mg PO DAILY 04/28/17 Esomeprazole Magnesium [Nexium] 40 mg PO DAILY 04/28/17 Fesoterodine Fumarate [Toviaz] 8 mg PO BEDTIME 04/28/17 Insulin Degludec [Tresiba Flextouch] 200 unit SC BID 04/28/17 Insulin Lispro [Humalog] 40 unit SC BID 04/28/17 Lisinopril 10 mg PO DAILY 04/28/17 Metformin HCl [Metformin Hydrochloride] 1,000 mg PO BID 04/28/17 Pregabalin [Lyrica] 100 mg PO TID 04/28/17 Ropinirole Hydrochloride [Ropinirole HCl] 3 mg PO BEDTIME 04/28/17 Trazodone HCl 300 mg PO BEDTIME 04/28/17 Oxycodone W/ Acetaminophen [Oxycodone/Acetaminophen 10-325 mg] 10 mg PO QID 02/15/19 Ropinirole Hydrochloride [Ropinirole HCl] 0.5 mg PO DAILY 02/15/19 Venlafaxine HCl 75 mg PO DAILY 02/15/19 Review of Systems - Review of Systems Constitutional: States: no symptoms reported, see HPI. Denies: chills, fever, malaise, weakness EENTM: States: no symptoms reported. Denies: eye pain, blurred vision, double vision Respiratory: States: no symptoms reported. Denies: cough, short of breath, stridor, wheezing Cardiology: States: no symptoms reported. Denies: chest pain, palpitations, syncope Gastrointestinal/Abdominal: States: no symptoms reported. Denies: abdominal pain, diarrhea, nausea, vomiting Genitourinary: States: no symptoms reported. Denies: dysuria, frequency Musculoskeletal: States: see HPI, muscle pain, muscle stiffness Skin: States: change in color, other - left leg is swollen, shiny and splotchy redness Neurological: States: see HPI, numbness. Denies: headache, tremors, weakness Endocrine: States: no symptoms reported. Denies: increased hunger, increased thirst, increased urine Hematologic/Lymphatic: States: no symptoms reported. Denies: blood clots, easy bleeding All other Systems: Reviewed and Negative, No Change from Baseline Past Medical History (General) - Patient Medical History Hx Seizures: No Hx Stroke: No Hx Dementia: No Hx of COPD: No Hx Cardiac Disorders: Yes - thinks she has had a couple MIs Hx Congestive Heart Failure: Yes Hx Pacemaker: No Hx Hypertension: Yes Hx Thyroid Disease: No Hx Diabetes: Yes Hx Gastroesophageal Reflux: No Hx Renal Disease: No Hx Cancer: No Hx of HIV: No Hx Hepatitis C: No Hx MRSA: No Surgical History: appendectomy, cholecystectomy, Hysterectomy - Vaccination History Hx Tetanus, Diphtheria Vaccination: No Hx Influenza Vaccination: No Hx Pneumococcal Vaccination: No - Social History Hx Tobacco Use: Yes Hx Alcohol Use: No - Female History Patient : No Family Medical History - Family History Mother Family History: No Known Living Status: Still Living Physical Exam - Physical Exam General Appearance: Alert, Anxious, Obvious distress, Unkempt, Well Developed, Well Hydrated, Well Nourished Eye Exam: bilateral normal Ears, Nose, Throat: hearing grossly normal, normal ENT inspection, normal pharynx Neck: non-tender, full range of motion, supple Respiratory: chest non-tender, lungs clear, normal breath sounds, no respiratory distress, no accessory muscle use Cardiovascular/Chest: regular rate, rhythm, no edema, no gallop Peripheral Pulses: radial,right: 2+, radial,left: 2+, dorsalis pedis,right: 1+, dorsalis pedis,left: 0 Gastrointestinal/Abdominal: normal bowel sounds, non tender, soft Back Exam: normal inspection, no CVA tenderness, no vertebral tenderness Extremity: normal range of motion, non-tender, normal inspection 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 12/29/20 21:51 I spoke with the on-call painter aircraft, Dr. Emerson, for the group the performed procedure on Tuesday. Apparently the patient had an angioplasty of the left proximal femoral artery with good flow afterwards. They are concerned that she is reoccluding the vessel in light of her poor distal pulses. Have recommended transfer to [place] for interventional cardiology and to heparinize her now. I have initiated heparin drip and are arranging for ambulance transfer at this time. I discussed this plan of care with the patient she voices understanding and agreement. Jez García M.D. #[id number] - Results/Orders Results/Orders: 12/29/20 20:30 Heparin Premix [Heparin/D5w 25,000U/500ML] 25,000 units Premix Bag 1 bag IVS PRN Laboratory Results - last 24 hr 12/29/20 12/29/20 12/29/20 20:57 20:57 20:57 WBC 7.5 RBC 3.75 L Hgb 10.3 L Hct 32.5 L MCV 86.5 MCH 27.4 MCHC 31.6 L RDW 17.6 H Plt Count 169 MPV 8.8 Absolute Neuts (auto) 5.80 Absolute Lymphs (auto) 0.80 L Absolute Monos (auto) 0.60 Absolute Eos (auto) 0.20 Absolute Basos (auto) 0.10 Neutrophils % 77.5 Lymphocytes % 10.1 L Monocytes % 8.2 Eosinophils % 3.0 Basophils % 1.2 PT 10.1 INR 1.02 PTT (SP) 27.0 Sodium 138 Potassium 6.0 H Chloride 107 Carbon Dioxide 23 Anion Gap 14.0 BUN 30 H Creatinine 1.33 H BUN/Creatinine Ratio 22.6 H Random Glucose 154 H Serum Osmolality 284.9 Lactic Acid Calcium 8.7 Total Bilirubin 0.7 AST 15 ALT 15 Alkaline Phosphatase 99 Serum Total Protein 6.9 Albumin 3.4 Globulin 3.5 Albumin/Globulin Ratio 1.0 L 12/29/20 20:57 WBC RBC Hgb Hct MCV MCH MCHC RDW Plt Count MPV Absolute Neuts (auto) Absolute Lymphs (auto) Absolute Monos (auto) Absolute Eos (auto) Absolute Basos (auto) Neutrophils % Lymphocytes % Monocytes % Eosinophils % Basophils % PT INR PTT (SP) Sodium Potassium Chloride Carbon Dioxide Anion Gap BUN Creatinine BUN/Creatinine Ratio Random Glucose Serum Osmolality Lactic Acid 0.9 Calcium Total Bilirubin AST ALT Alkaline Phosphatase Serum Total Protein Albumin Globulin Albumin/Globulin Ratio Vital Signs 12/29/20 12/29/20 12/29/20 19:05 20:00 21:00 Temperature 98.0 F Pulse Rate [ 70 73 75 monitor] Respiratory 20 18 18 Rate Blood Pressure 164/65 130/55 158/58 [Left Arm] O2 Sat by Pulse 97 99 98 Oximetry Departure - Departure Clinical Impression: Arterial occlusion, lower extremity Time of Disposition: 21:53 Disposition: Transfer to Hospital Condition: Fair Departure Forms: ED Discharge - Pt. Copy, Patient Portal Self Enrollment Diet: other - npo Activity: as per physical therapy Referrals: Deisy Brock, LAURENT [Primary Care Provider] - 1-2 Weeks Home Medications: Ambulatory Orders Clopidogrel Bisulfate [Plavix] 75 mg PO DAILY 04/28/17 Dapagliflozin Propanediol [Farxiga] 10 mg PO DAILY 04/28/17 Esomeprazole Magnesium [Nexium] 40 mg PO DAILY 04/28/17 Fesoterodine Fumarate [Toviaz] 8 mg PO BEDTIME 04/28/17 Insulin Degludec [Tresiba Flextouch] 200 unit SC BID 04/28/17 Insulin Lispro [Humalog] 40 unit SC BID 04/28/17 Lisinopril 10 mg PO DAILY 04/28/17 Metformin HCl [Metformin Hydrochloride] 1,000 mg PO BID 04/28/17 Pregabalin [Lyrica] 100 mg PO TID 04/28/17 Ropinirole Hydrochloride [Ropinirole HCl] 3 mg PO BEDTIME 04/28/17 Trazodone HCl 300 mg PO BEDTIME 04/28/17 Oxycodone W/ Acetaminophen [Oxycodone/Acetaminophen 10-325 mg] 10 mg PO QID 02/15/19 Ropinirole Hydrochloride [Ropinirole HCl] 0.5 mg PO DAILY 02/15/19 Venlafaxine HCl 75 mg PO DAILY 02/15/19
[2020-12-29 21:56] VITALS: BP 137/61; TEMP 98.1; O2SAT 96
== END 2020-12-29 22:05 | disposition short-term general hospital (02) ==
LOC: ER 18:55
DX: I77.1 Stricture of artery (principal); G89.18 Other acute postprocedural pain; M79.605 Pain in left leg; I11.0 Hypertensive heart disease with heart failure; I50.9 Heart failure, unspecified; Z87.891 Personal history of nicotine dependence; Z79.4 Long term (current) use of insulin; Z79.899 Other long term (current) drug therapy; Z88.8 Allergy status to other drugs, medicaments and biological substances
CPT/HCPCS: 36415; 80053; 83605; 85025; 85610; 85730; J1644; J2270

== ENCOUNTER → 2021-01-21 | Outpatient (CLI) | payer OTHER ==
--- NOTE | 2021-01-21 18:11 | RAD ---
EXAM: XR Chest, 2 Views CLINICAL HISTORY: DYSPNEA TECHNIQUE: Frontal and lateral views of the chest. COMPARISON: 02/07/2019 FINDINGS: Lungs: No consolidation. Normal pulmonary vascular pattern. Pleural space: No pleural effusion. No pneumothorax. Heart: Stable cardiac shadow. Mediastinum: No abnormality noted. Bones/joints: No abnormality noted. IMPRESSION: No acute cardiopulmonary disease noted. 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
--- NOTE | 2021-01-21 18:41 | CT ---
EXAM: CT Abdomen and Pelvis Without Intravenous Contrast CLINICAL HISTORY: ABDOMINAL DISTENSION TECHNIQUE: Axial computed tomography images of the abdomen and pelvis without intravenous contrast. Sagittal and coronal reformatted images were created and reviewed. This CT exam was performed using one or more of the following dose reduction techniques: automated exposure control, adjustment of the mA and/or kV according to patient size, and/or use of iterative reconstruction technique. COMPARISON: MRI lumbar spine which includes portions of the kidneys 10/11/2016. FINDINGS: Limitations: The mid and left anterior and lateral abdominal wall not completely included. Lung bases: There is mild basilar atelectasis. Pleural space: Very small bilateral pleural effusions present. Heart: Cardiomegaly. Mediastinum: No abnormality noted. ABDOMEN: Liver: Lack of intravenous contrast limits detection of some masses. No abnormality noted. Gallbladder and bile ducts: Cholecystectomy. Pancreas: Lack of intravenous contrast limits detection of some masses. No pancreatic mass, calcification, inflammation or ductal dilation noted. Spleen: No abnormality noted. Adrenals: Visualized portions appear normal. Kidneys and ureters: There is symmetrical perinephric stranding. There are 3.8 x 3.2, 1.8 x 1.7 and 2.6 x 2.5 x 2.6 cm hypodense nodules in the left kidney. Shown to be cysts on previous imaging. The right kidney appears grossly normal. No stones. Stomach and bowel: Question mild thickening of the duodenal bulb. There is a moderate to large amount of stool in the right and transverse colon. No obstruction. PELVIS: Appendix: No findings to suggest acute appendicitis. Bladder: Appears normal for the degree of filling. No stones or inflammation. No large mass. Masses may not be detected in the absence of opacification. Reproductive: No abnormalities noted. ABDOMEN and PELVIS: Intraperitoneal space: There is moderate nonspecific ascites. No organized collection noted. Bones/joints: Left femoral stent present. Soft tissues: Diffuse body wall edema noted. Vasculature: There is atherosclerosis of the aorta and branches. No aneurysm. Lymph nodes: No pathologically enlarged lymph nodes. IMPRESSION: 1. I cannot exclude mild edema of the duodenal bulb. There is no evidence of intestinal obstruction, perforation or localized intestinal inflammation. 2. Anasarca with moderate nonspecific ascites and diffuse body wall edema. 3. There are cysts in the left kidney. The lower pole cyst was not completely evaluated on the prior exam. Renal ultrasound is recommended to completely exclude the presence of a complex or solid mass. Electronically signed by: Sally Adorno MD 01/21/2021 6:39 PM Medium
== END ==
LOC: LAB 17:18
PROVIDERS: ATTEND Nurse Practitioner Family
DX: R06.00 Dyspnea, unspecified (principal); R18.8 Other ascites; N28.1 Cyst of kidney, acquired; R14.0 Abdominal distension (gaseous)